=== PATIENT | female | born 1960 ===

== ENCOUNTER 2017-08-04 08:46 | Emergency (ER) | payer OTHER ==
[~2017-08-04] VITALS: Ht 165.1 cm; Wt 104.3 kg
[~2017-08-04 08:46] MED LIST: BENZ100A PO; CODGUAEL PO; ERYSTE250 PO
[2017-08-04] MEDS ORDERED: Zovirax800 MG PO (09:44)
[2017-08-04] MEDS ORDERED: Prednisone20 MG PO (09:44)
== END 2017-08-04 09:59 | disposition home or self-care (01) ==
LOC: ER 08:46
DX: G51.0 Bell's palsy (principal)
CPT/HCPCS: 36415; 99283

== ENCOUNTER 2022-05-31 09:18 | Day surgery (SDC) | payer OTHER ==
[~2022-05-31] VITALS: Ht 165.1 cm; Wt 108.4 kg
[~2022-05-31 09:18] MED LIST changes: +Prednisone20 MG PO; +Zovirax800 MG PO
[2022-05-31] MEDS ORDERED: OXYB5 (09:37)
[2022-05-31] MEDS ORDERED: LEVSOD75 (09:37)
[2022-05-31] MEDS ORDERED: CHOLP (09:37)
--- NOTE | 2022-05-31 10:32 | NUR ---
05/31/[address] NOTIFIED OF PT.'S RAW BOTTOM FROM PREP. OK TO APPLY LIDOCAINE JELLY PER ORDER.
--- NOTE | 2022-05-31 11:17 | NUR ---
05/31/22 1117 Li Lew LIDOCAINE JELLY APPLIED TO SORE BOTTOM DURING & AFTER CASE PER DR. QUARLES.
== END 2022-05-31 11:50 | disposition home or self-care (01) ==
LOC: ORSCSDS 09:18
PROVIDERS: Internal Medicine Gastroenterology
PROC: 0DBB8ZX Excision of Ileum, Via Natural or Artificial Opening Endoscopic, Diagnostic (ICD-10-PCS; principal; 2022-05-31 10:30)
PROC: 0DBN8ZX Excision of Sigmoid Colon, Via Natural or Artificial Opening Endoscopic, Diagnostic (ICD-10-PCS; principal; 2022-05-31 10:30)
PROC: 0DBE8ZX Excision of Large Intestine, Via Natural or Artificial Opening Endoscopic, Diagnostic (ICD-10-PCS; principal; 2022-05-31 10:30)
DX: R19.7 Diarrhea, unspecified (principal); D12.5 Benign neoplasm of sigmoid colon; K64.8 Other hemorrhoids; K57.30 Diverticulosis of large intestine without perforation or abscess without bleeding; E03.9 Hypothyroidism, unspecified; Z79.899 Other long term (current) drug therapy
CPT/HCPCS: 88305; A9270; J2704; J7120

== ENCOUNTER → 2022-06-08 | Outpatient (CLI) | payer OTHER ==
[~2022-06-08] MED LIST changes: +CHOLP; +LEVSOD75; +OXYB5
== END | disposition home or self-care (01) ==
LOC: LAB 09:45 → LAB SHORT 09:45
DX: R19.4 Change in bowel habit (principal)
CPT/HCPCS: 82653